=== PATIENT | male | born 1955 | race Caucasian/White ===

== ENCOUNTER → 2024-04-11 06:37 | Day surgery (SDC) | payer MEDICARE, SELFPAY | LOC: GI 06:37 | PROVIDERS: ATTENDING PHYSICIAN Internal Medicine Gastroenterology | DX: R10.13 Epigastric pain (principal); K44.9 Diaphragmatic hernia without obstruction or gangrene; K31.7 Polyp of stomach and duodenum; D13.2 Benign neoplasm of duodenum; K29.50 Unspecified chronic gastritis without bleeding | CPT/HCPCS: 43251; 88305; 88342 ==

== ENCOUNTER 2024-11-02 06:22 | Day surgery (SDC) | payer MEDICARE, SELFPAY | END 2024-11-02 11:19 | disposition home or self-care (01) | LOC: GI 06:22 | PROVIDERS: ATTENDING PHYSICIAN Internal Medicine Gastroenterology | DX: Z12.11 Encounter for screening for malignant neoplasm of colon (principal); K57.30 Diverticulosis of large intestine without perforation or abscess without bleeding; K64.8 Other hemorrhoids; Z80.0 Family history of malignant neoplasm of digestive organs | CPT/HCPCS: G0105 ==

== ENCOUNTER 2025-06-01 06:25 | Day surgery (SDC) | payer MEDICARE, SELFPAY | END 2025-06-01 11:50 | disposition home or self-care (01) | LOC: GI 06:25 | PROVIDERS: ATTENDING PHYSICIAN Internal Medicine Gastroenterology | DX: K44.9 Diaphragmatic hernia without obstruction or gangrene (principal); K31.7 Polyp of stomach and duodenum; K21.9 Gastro-esophageal reflux disease without esophagitis | CPT/HCPCS: 43235 ==

== ENCOUNTER → 2025-06-08 11:25 | Outpatient (REF) | payer MEDICARE, SELFPAY | LOC: HWRAD 11:25 | PROVIDERS: ATTENDING PHYSICIAN Family Medicine | DX: R22.2 Localized swelling, mass and lump, trunk (principal) | CPT/HCPCS: 72072; 72110 ==